=== PATIENT | male | born 1990 | race American Indian/Alaskan Native ===

== ENCOUNTER 2018-05-15 06:12 | Emergency (ER) | payer OTHER ==
[2018-05-15 06:26] VITALS: BP 146/62
[2018-05-15] MEDS ORDERED: BENADRYL IV ONE (07:43)
--- NOTE | 2018-05-15 07:56 | Emergency Department Report ---
ED General Adult HPI - General Chief complaint: Allergic Reaction Stated complaint: SKIN IRRITATION Time Seen by Provider: 05/15/18 07:11 Source: patient, EMS Mode of arrival: Stretcher Limitations: No Limitations - History of Present Illness Initial comments: Says a 27-year-old man with a psychiatric disorder. He states that he had some sensation of his throat closing which he somehow attributed to his Invega. At the time of my encounter, the patient is entirely gotten this symptom of throat discomfort. He denied any hives or other rash. He has chronic wounds of his back and shoulder. He states this is due to a reaction to medication. He denies being under the care of wound clinic. He is observed constantly irritating his shoulder wound which is well-healed. The back wound is red and moist but he does not seem to be manipulating it. He has asked twice for water. He has no history of diabetes. I informed him that we would like to check some laboratory tests. I ordered Benadryl mostly as an anxiolytic as he did not have any obvious anaphylactoid reaction. Severity scale (0 -10): 10 Associated Symptoms: denies other symptoms - Related Data Allergies Allergy/AdvReac Type Severity Reaction Status Date / Time paliperidone [From Invega] Allergy Rash Verified 05/15/18 06:26 ED Review of Systems ROS: Stated complaint: SKIN IRRITATION Other details as noted in HPI Constitutional: denies: chills, fever Eyes: denies: eye pain, eye discharge, vision change ENT: as per HPI, throat pain (not pain as per HPI). 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 denies: anxiety, depression Hematological/Lymphatic: denies: easy bleeding, easy bruising ED Past Medical Hx - Past Medical History Previous Medical History?: Yes Hx Psychiatric Treatment: Yes (schizophrenia) - Surgical History Past Surgical History?: No - Social History Smoking Status: Never Smoker Substance Use Type: Alcohol ED Physical Exam - General Limitations: No Limitations General appearance: alert, in no apparent distress - Head Head exam: Present: atraumatic, normocephalic - Eye Eye exam: Present: normal appearance. Absent: scleral icterus - ENT ENT exam: Present: mucous membranes moist - Neck Neck exam: Present: normal inspection. Absent: tenderness, meningismus - Respiratory Respiratory exam: Present: normal lung sounds bilaterally. Absent: respiratory distress - Cardiovascular Cardiovascular Exam: Present: regular rate, normal rhythm. Absent: systolic murmur, diastolic murmur, rubs, gallop - GI/Abdominal GI/Abdominal exam: Present: soft, normal bowel sounds. Absent: distended, tenderness, guarding, rebound, rigid - Rectal Rectal exam: Present: deferred - Extremities Exam Extremities exam: Present: normal inspection. Absent: calf tenderness - Back Exam Back exam: Present: normal inspection, other (skin ulcer and see below). Absent: CVA tenderness (R), CVA tenderness (L) - Neurological Exam Neurological exam: Present: alert, oriented X3, CN II-XII intact. Absent: motor sensory deficit - Psychiatric Psychiatric exam: Present: normal affect, normal mood - Skin Skin exam: Present: warm, dry, intact, other (large well granulated and healed ulcer of the right shoulder. Also large red and somewhat moist non-granulated ulcer at the midline below the base of the neck. There is no gus signs of infection at this site but it is inflamed.). Absent: rash ED Course Vital Signs 05/15/18 05/15/18 06:22 06:30 Temperature 98.8 F Pulse Rate 103 H Respiratory 16 18 Rate Blood Pressure 146/62 Blood Pressure 146/62 [Left] O2 Sat by Pulse 100 100 Oximetry - Reevaluation(s) Reevaluation #1: I told the patient that I would like to check some labs and refer him to a wound clinic. I ordered Benadryl. Not long thereafter the nurse came and informed me that the patient has signed out AMA. I do think the patient had adequate mental capacity to sign out AMA despite his psychiatric history. 05/15/18 08:16 Critical care attestation.: If time is entered above; I have spent that time in minutes in the direct care of this critically ill patient, excluding procedure time. ED Disposition Clinical Impression: Skin ulcer Qualifiers: Non-pressure ulcer stage: unspecified non-pressure ulcer stage Qualified Code(s): L98.499 - Non-pressure chronic ulcer of skin of other sites with unspecified severity Schizophrenia Qualifiers: Schizophrenia type: unspecified Qualified Code(s): F20.9 - Schizophrenia, unspecified Disposition: LEFT AGAINST MED ADVICE Is pt being admited?: No Does the pt Need Aspirin: No Condition: Stable Referrals: [facility] SOSA MD [Primary Care Provider] - 3-5 Days Time of Disposition: 08:18
== END 2018-05-15 07:57 | disposition left against medical advice (07) ==
LOC: ED 06:12
DX: L98.429 Non-pressure chronic ulcer of back with unspecified severity (principal); F20.9 Schizophrenia, unspecified; Z88.3 Allergy status to other anti-infective agents